=== PATIENT | male | born 1955 | race Caucasian/White ===

== ENCOUNTER 2023-01-09 12:43 | Outpatient (CLI) | payer MEDICARE, SELFPAY ==
--- NOTE | 2023-01-09 13:08 | USCV_ITS ---
Isrrael Evans Age: 67 Gender: M : 1955 Exam Date: 01/09/2023 13:19 Ordering Phys: Jessica Romero MD Technologist: Exam Location: [facility] [place]ication: aaa HISTORY: Diameter (cm) AP x Transverse x Length Velocity (cm/s) Waveform Prox Aorta: 1.42 x 1.97 x 109.50 Triphasic Mid Aorta: 1.74 x 1.57 x 99.80 Triphasic Distal Aorta: 1.39 x 1.87 x 102.60 Triphasic Right Iliac Prox: 0.84 x 1.13 x 80.65 Triphasic Left Iliac Prox: 0.87 x 1.00 x 223.70 Triphasic Stent Prox Landing x x Aneurysmal Sac Max x x Lt Lat Sac Dim Rt Lat Sac Dim Stent Dist Landing x x Right Iliac Stent x x Left Iliac Stent x x Right Renal Art Left Renal Art FINDINGS: CONCLUSIONS No evidence of abdominal aortic or bilateral iliac aneurysm. Julio César Santana MD (Electronically Signed) Final Date: 09 January 2023 13:58 S
== END 2023-01-09 12:44 | disposition home or self-care (01) ==
LOC: RAD 12:51
PROVIDERS: PCP Family Medicine; Visit Provider Family Medicine
DX: Z13.6 Encounter for screening for cardiovascular disorders (principal)
CPT/HCPCS: 76706

== ENCOUNTER 2023-08-06 13:45 | Outpatient (CLI) | payer MEDICARE, MEDICAID, SELFPAY ==
--- NOTE | 2023-08-06 13:57 | CT_ITS ---
WS: [id number] LDCT LUNG CANCER SCREENING HISTORY: HX OF TOBACCO USE/NICOTINE DEPENDENCE TECHNIQUE: Axial imaging performed from the apices to 1 cm below the costophrenic angles. Coronal and sagittal reformats are submitted with axial MIP series. All CT scans at [facility] use at least one of these dose optimization techniques: automated exposure control; mA and/or kV adjustment per patient size (includes targeted exams where dose is matched to clinical indication); or iterativ e reconstruction. DLP: 71.82 mGy.cm DIvol: Mean CTDIvol: 1.50 (mGy) COMPARISON: None available. Diagnostic quality: Satisfactory Lungs: Mildly hyperexpanded lungs. Less than 3 mm nodule periphery RIGHT upper lobe. There is an bravo tional 3 mm nodule in the RIGHT middle lobe adjacent to the fissure. No mass. No pneumonia. No endobr onchial lesions. Heart: Normal size heart with no pericardial effusion.. Other findings: Mild atherosclerosis aorta. Normal sized pulmonary artery. No mediastinal or hilar ad enopathy. 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 No adrenal mass. IMPRESSION: CT/CT lung screening 47519 LUNG-RADS: 2-Benign Appearance or Behavior FOLLOW UP: 12 Month: Continue annual screening with LDCT OTHER FINDINGS (S MODIFIER): None.
== END 2023-08-06 13:46 | disposition home or self-care (01) ==
LOC: RAD 13:50
PROVIDERS: PCP Family Medicine; Visit Provider Family Medicine
DX: Z12.2 Encounter for screening for malignant neoplasm of respiratory organs (principal); Z87.891 Personal history of nicotine dependence
CPT/HCPCS: 71271